=== PATIENT | female | born 1955 | race African-American/Black ===

== ENCOUNTER → 2017-09-18 | Outpatient (CLI) | payer OTHER ==
[~2017-09-18] MED LIST: CARVEDILOL3.125 MG PO; COREG; DYAZIDE; LISINOPRIL5 MG PO; SIMVASTATIN PO; TORADOL 10 MG T10 MG PO; TRIAMTERENE-HC1 EAC1 PO; VALIUM5 MG PO; ZOCOR 20 MG TAB20 M1; ZOFRAN ODT4 MG PO; [UNRECOGNIZED DRUG - REMARK]
[2017-09-18 16:42] LABS: CREATININE 0.8 mg/dL (0.6-1.3)
--- NOTE | 2017-09-20 09:46 | PF ---
[address] [address] PULMONARY FUNCTION REPORT Name: THANIA ZIMMERMAN Francesca Room: [facility] MERIDIANMonae#: [id number] Admission: 09/18/17 Attend Phys: Allan José MD Discharge: Date of : 53 Report #: [id number] THIS REPORT FOR: //name// CC: Allan José DATE OF SERVICE: 09/19/2017 PULMONARY FUNCTION TEST SPIROMETRY: The FEV1/FVC was 76% predicted. FEV1 was 1.33 liters at 55% post bronchodilators. The forced vital capacity was 1.68 liters at 54% of predicted. The FEF 25-75 was 37% predicted suggesting small airway disease. Total lung capacity was 4.1 liters at 86% predicted. The DLCO was 52% of predicted. IMPRESSION: The above pulmonary function test suggests possible combined obstructive and restrictive defect with small airway disease and low DLCO. <ELECTRONICALLY SIGNED> By: Rory Hinojosa MD 09/20/17 [id number] Hinojosa MD /nt
== END ==
LOC: M.CT 09:30 → M.LAB 16:20 → M.PUL 17:00 → M.CT 17:30
PROVIDERS: Internal Medicine
DX: J98.11 Atelectasis (principal); N28.1 Cyst of kidney, acquired; K44.9 Diaphragmatic hernia without obstruction or gangrene; J02.9 Acute pharyngitis, unspecified; J06.9 Acute upper respiratory infection, unspecified; B97.89 Other viral agents as the cause of diseases classified elsewhere

== ENCOUNTER → 2020-05-31 | Outpatient (CLI) | payer MEDICARE ==
[2020-05-31 12:15] LABS: ABSOLUTE BASOPHILS 0.3 thou/uL (0.0-0.2); ABSOLUTE EOSINOPHILS 0.1 thou/uL (0.0-0.7); ABSOLUTE LYMPHOCYTES 2.9 thou/uL (0.8-5.3); ABSOLUTE MONOCYTES 0.4 thou/uL (0.0-1.2); BASOPHILS 3.4 %; EOSINOPHILS 1.4 %; HEMATOCRIT 37.3 % (37.0-47.0); HEMOGLOBIN 12.1 gm/dL (12.0-15.0); LYMPHOCYTES 37.4 %; MCH 28.4 pg (26.0-34.0); MCHC 32.5 g/dL (28.0-37.0); MCV 87.4 fL (80.0-100.0); MONOCYTES 5.5 %; NUCLEATED RBCS 0 /100WBC; PLATELET COUNT* 332 thou/uL (150-400); POLYS 52.3 %; RBC 4.27 mil/uL (4.20-5.00); RDW-CV 13.3 % (10.5-14.5); WBC 7.7 thou/uL (4.0-11.0)
[2020-05-31 12:44] LABS: ALBUMIN 3.6 g/dL (3.4-5.0); ALKALINE PHOSPHATASE 102 U/L (46-116); ANION GAP 6 mmol/L (7-16); BUN 7 mg/dL (7-18); CALCIUM 9.1 mg/dL (8.5-10.1); CHLORIDE 101 mmol/L (98-107); CO2 31 mmol/L (21-32); CREATININE 0.6 mg/dL (0.6-1.3); GLUCOSE 79 mg/dL (70-99); POTASSIUM 3.8 mmol/L (3.5-5.1); SGOT 16 U/L (15-37); SGPT 21 U/L (30-65); SODIUM 138 mmol/L (136-145); TOTAL BILIRUBIN 0.4 mg/dL (<0.1-1.0); TOTAL PROTEIN 8.2 g/dL (6.4-8.2); TROPONIN-I LEVEL <0.06 ng/mL (<0.06)
== END ==
LOC: M.LAB 11:44
PROVIDERS: ATTEND Internal Medicine
DX: R07.9 Chest pain, unspecified (principal); R42 Dizziness and giddiness; I10 Essential (primary) hypertension